=== PATIENT | female | born 1960 | race Caucasian/White ===

== ENCOUNTER 2023-02-24 10:19 | Outpatient (OUT) | payer SELFPAY ==
--- NOTE | 2023-02-24 10:27 | MM_ITS ---
Patient: MALLIKA RAMIREZ Exam Date: 02/24/2023 : 1960 Gender:F Ordering : JAMAL MCCLAIN [facility] Admission #: [id number] Family : Order #: [id number] CLICK HERE TO VIEW EXAM RADIOLOGY REPORT PROCEDURE: MM TOMOSYNTHESIS SCREENING BI COMPARISON: MG MAMM SCREEN 3D MAC CAD, 02/23/2022. MG MAMM SCREEN 3D MAC CAD, 02/15/2021. INDICATIONS: Screening Calculator Name NCI Breast Cancer Risk Assessment Tool 5 Year Breast Cancer Risk 2.60% Lifetime Breast Cancer Risk 12.10% Personal Breast Cancer No Personal Ovarian Cancer No Treatments None Family Cancers Mother with breast cancer at age ~52. LOCATION: The [facility] BREAST COMPOSITION: Scattered areas fibroglandular density. FINDINGS: DIAGNOSTIC CATEGORY 1--NEGATIVE. NO CHANGE FROM COMPARISON ASSESSMENT. Scattered benign-appearing lymph nodes are present. RIGHT BREAST: No significant suspicious finding. LEFT BREAST: No significant suspicious finding. RECOMMENDATIONS: ROUTINE MAMMOGRAM AND CLINICAL EVALUATION IN 12 MONTHS. PLEASE NOTE: A NORMAL MAMMOGRAM DOES NOT EXCLUDE THE POSSIBILITY OF BREAST CANCER. A CLINICALLY SUSPICIOUS PALPABLE LUMP SHOULD BE BIOPSIED. Dictated by: Barron Romero MD on 02/24/2023 at 12:58 Approved by: Barron Romero MD on 02/24/2023 at 12:59
== END 2023-02-24 10:20 | disposition home or self-care (01) ==
LOC: MAMMO 10:19
PROVIDERS: PCP Nurse Practitioner Family; Visit Provider Nurse Practitioner Family
DX: Z12.31 Encounter for screening mammogram for malignant neoplasm of breast (principal); Z80.3 Family history of malignant neoplasm of breast
CPT/HCPCS: 77063; 77067

== ENCOUNTER 2024-03-07 13:44 | Outpatient (OUT) | payer OTHER, SELFPAY ==
--- NOTE | 2024-03-07 14:20 | MM_ITS ---
Patient Name: MALLIKA RAMIREZ MR#: [id number] : 1960 Exam Date: 03/07/2024 Ordering Doctor: JAMAL MCCLAIN CNP RADIOLOGY REPORT PROCEDURE: MM TOMOSYNTHESIS SCREENING BI COMPARISON: MM TOMOSYNTHESIS SCREENING BI, 02/24/2023. MG MAMM SCREEN 3D MAC CAD, 02/23/2022. INDICATIONS: Screening Calculator Name NCI Breast Cancer Risk Assessment Tool 5 Year Breast Cancer Risk 2.70% Lifetime Breast Cancer Risk 11.80% Personal Breast Cancer No Personal Ovarian Cancer No Treatments None Family Cancers Mother with breast cancer at age ~52. LOCATION: [facility] BREAST COMPOSITION: There are scattered areas of fibroglandular density. FINDINGS: DIAGNOSTIC CATEGORY 1--NEGATIVE. NO CHANGE FROM COMPARISON ASSESSMENT. Scattered benign-appearing calcifications are present. RIGHT BREAST: No significant suspicious finding. LEFT BREAST: No significant suspicious finding. RECOMMENDATIONS: ROUTINE MAMMOGRAM AND CLINICAL EVALUATION IN 12 MONTHS. PLEASE NOTE: A NORMAL MAMMOGRAM DOES NOT EXCLUDE THE POSSIBILITY OF BREAST CANCER. A CLINICALLY SUSPICIOUS PALPABLE LUMP SHOULD BE BIOPSIED. Dictated by: Barron Romero MD on 03/07/2024 at 15:19 Approved by: Barron Romero MD on 03/07/2024 at 15:20
== END 2024-03-07 13:45 | disposition home or self-care (01) ==
LOC: MAMMO 13:45
PROVIDERS: PCP Nurse Practitioner Family; Visit Provider Nurse Practitioner Family
DX: Z12.31 Encounter for screening mammogram for malignant neoplasm of breast (principal); Z80.3 Family history of malignant neoplasm of breast
CPT/HCPCS: 77063; 77067

== ENCOUNTER 2025-03-12 10:51 | Outpatient (OUT) | payer OTHER, SELFPAY ==
--- NOTE | 2025-03-12 10:54 | MM_ITS ---
Patient Name: MALLIKA RAMIREZ MR#: [id number] : 1960 Exam Date: 03/12/2025 Ordering Doctor: JAMAL MCCLAIN [employer] RADIOLOGY REPORT PROCEDURE: MM TOMOSYNTHESIS SCREENING BI COMPARISON: MM TOMOSYNTHESIS SCREENING BI, 03/07/2024. MM TOMOSYNTHESIS SCREENING BI, 02/24/2023. MG MAMM SCREEN 3D MAC CAD, 02/23/2022. MG MAMM MAC SCRN W CAD DIG, 08/19/2013. INDICATIONS: Screening Calculator Name NCI Breast Cancer Risk Assessment Tool 5 Year Breast Cancer Risk 2.70% Lifetime Breast Cancer Risk 11.40% Personal Breast Cancer No Personal Ovarian Cancer No Treatments None Family Cancers Mother with breast cancer at age ~52. LOCATION: The [facility] BREAST COMPOSITION: There are scattered areas of fibroglandular density. FINDINGS: RIGHT BREAST: No significant suspicious finding. Benign-appearing lymph nodes are noted along the chest wall. LEFT BREAST: No significant suspicious finding. There is a similar focal asymmetry on the left. DIAGNOSTIC CATEGORY 2--BENIGN FINDING: RECOMMENDATIONS: ROUTINE MAMMOGRAM AND CLINICAL EVALUATION IN 12 MONTHS. Dictated by: Randy Ramirez MD on 03/12/2025 at 15:55 Approved by: Randy Ramirez MD on 03/12/2025 at 15:58
--- OUTSIDE RECORDS SUMMARY | 2025-03-12 11:06 | XMS_ITS | CCD ---
Author Organization [facility] Team Providers Care Flight Engineer Manager Name Role Phone JAMAL MCCLAIN Consulting Unavailable JAMAL MCCLAIN Primary Care Unavailable JAMAL MCCLAIN Admitting Unavailable JAMAL MCCLAIN Attending Unavailable JAMAL MCCLAIN Primary Care Unavailable JAMAL MCCLAIN Admitting Unavailable DR ERIN SIMS V Consulting Unavailable JAMAL MCCLAIN Attending Unavailable JAMAL MCCLAIN Consulting Unavailable Problems Problem ClassificationProblemDateDocumented DateEpisodic/ChronicOther screening for suspected conditions (not mental disorders or infectious disease) (4 sources)Encounter for screening mammogram for malignant neoplasm of breast; Translations: [ENC SCR MAMMO MALIG NEOPLASM BREAST]Onset: 83-15-5719Hqelojly Residual codes; unclassified (1 source)Family history of malignant neoplasm of breast; Translations: [FAMILY HX MALIG NEOPLASM OF BREAST]Onset: 38-16-2266Sbemzeaj Results Test NameValueInterpretationReference RangeFacilityINSULINon 11-05-1443Anegwqi 18.3 uIU/mLNormal2.6-24.9The [facility] HospitalComment on above:Performed By: #### INSULIN #### [facility] [address] [place] [address] Dr. Arlen Garcia AUTO DIFFon 92-73-7757KSDG #0.0 103/ulNormal0.0-0.1The [facility] HospitalComment on above:Performed By: #### CBC #### [facility] [address] [place] [address] Dr. Arlen Iniguezsophils/100 WBC (Bld)0.2 %Normal0.2-2.0[facility] Comment on above:Performed By: #### CBC #### [facility] [address] [place] [address] Dr. Arlen Hall #0.2 103/ulNormal0.0-0.7The [facility] HospitalComment on above: Performed By: #### CBC #### [facility] [address] [place] [address] Dr. Arlen Madridosinophils/100 WBC (Bld)1.7 %Normal0.9-7.0[facility] Comment on above:Performed By: #### CBC #### [facility] [address] [place] [address] Dr. Arlen Madridrythrocyte distribution width (RBC) [Ratio]13.3 %Atqwjs94.0-15.0 The [facility] HospitalComment on above:Performed By: #### CBC #### [facility] [address] [place] [address] Dr. Arlen LoyolaHematocrit (Bld) [Volume fraction]39.8 %Lvqqhw96.0-48.0The [facility] HospitalComment on above:Performed By: #### CBC #### [facility] [address] [place] [address] Dr. Arlen LoyolaHemoglobin (Bld) [Mass/Vol]13.3 g/rIEtikhc30.0-16.0The [facility] HospitalComment on above:Performed By: #### CBC #### [facility] [address] [place] [address] Dr. Arlen Peguero #0.03 10e3/ulNormal0.00-0.03The [facility] HospitalComment on above:Performed By: #### CBC #### [facility] [address] [place] [address] Dr. Arlen Peguero %0.3 %Normal0.0-0.5The [facility] HospitalComment on above: Performed By: #### CBC #### [facility] [address] [place] [address] Dr. Arlen Reeves #2.1 103/ulNormal1.2-3.8The [facility] HospitalComment on above:Performed By: #### CBC #### [facility] [address] [place] [address] Dr. Arlen Amayamphocytes/100 WBC (Bld)24.5 %Lvnvhs42.5-60.0The [facility] HospitalComment on above:Performed By: #### CBC #### [facility] [address] [place] [address] Dr. Arlen Fabian DIFF REQNONormalThe [facility] HospitalComment on above: Performed By: #### CBC #### [facility] [address] [place] [address] Dr. Arlen Palmer (RBC) [Entitic mass]29.8 orPowgcs92.7-34.0The [facility] HospitalComment on above:Performed By: #### CBC #### [facility] [address] [place] [address] Dr. Arlen Palmer (RBC) [Mass/Vol]33.4 g/yHTljoyd46.9-35.2The [facility] HospitalComment on above:Performed By: #### CBC #### [facility] [address] [place] [address] Dr. Arlen Palmer (RBC) [Entitic vol]89.0 sBBtojhl47.0-99.0The [facility] HospitalComment on above:Performed By: #### CBC #### [facility] [address] [place] [address] Dr. Arlen Cast #0.5 103/ulNormal0.3-0.8The [facility] HospitalComment on above:Performed By: #### CBC #### [facility] [address] [place] [address] Dr. Arlen Johnocytes/100 WBC (Bld)6.1 %Normal1.7-12.0[facility] Comment on above:Performed By: #### CBC #### [facility] [address] [place] [address] Dr. Arlen Galeano #5.8 103/ulNormal1.4-6.5The [facility] HospitalComment on above:Performed By: #### CBC #### [facility] [address] [address] [address] Arlen Uriasutrophils/100 WBC (Bld)67.2 %Dxczou05.0-75.0The [facility] Townshipment on above:Performed By: #### CBC #### [facility] [address] [address] [address] Arlen Smythlet mean volume (Bld) [Entitic vol]10.9 fLNormal9.5-13.5The [facility] HospitalComment on above:Performed By: #### CBC #### [facility] [address] [place] [address] Dr. Arlen YipT347 103/shUvbled617-779Byn [facility] Townshipment on above: Performed By: #### CBC #### [facility] [address] [place] [address] Dr. Arlen LoyolaRBC4.47 106/ulNormal4.20-5.40The [facility] Townshipment on above:Performed By: #### CBC #### [facility] [address] [place] [address] Dr. Arlen LoyolaWBC8.7 103/ulNormal4.0-11.0The [facility] HospitalComment on above: Performed By: #### CBC #### [facility] [address] [place] [address] Dr. Arlen Madrid THYROXINE INDEX T7on 16-39-5693UEE4.79Doigdk1.30-4.50The [facility] on above:Performed By: #### LIPID, TSH, CMP, T7 #### [facility] [address] [place] [address] Dr. Arlen LoyolaT3U36.0 %Mwcxww06.0-39.0The [facility] Townshipment on above: Performed By: #### LIPID, TSH, CMP, T7 #### [facility] [address] [place] [address] Dr. Arlen LoyolaT4 [Mass/Vol]8.00 ug/dLNormal4.80-13.90[facility] Comment on above:Performed By: #### LIPID, TSH, CMP, T7 #### [facility] [address] [place] [address] Dr. Arlen LoyolaGLYCOHEMOGLOBIN A1Con 69-07-4317SII RECOMMENDATIONSEE BELOWNormWright-Patterson Medical CenterComment on above:Result Comment: ADA RECOMMENDED LIMIT 4.0 - 6.0 ADA THERAPEUTIC TARGET < 7.0 ACTION SUGGESTED > 7.0Performed By: #### A1C #### [facility] [address] [place] [address] Dr. Arlen LoyolaGlucose [Mass/Vol]117 mg/dLNoKettering Health MiamisburgComment on above:Performed By: #### A1C #### [facility] [address] [place] [address] Dr. Arlen LoyolaHbA1c (Bld) [Mass fraction]5.7 %Normal4.5-6.2The [facility] HospitalComment on above:Performed By: #### A1C #### [facility] [address] [place] [address] Dr. Arlen Boyer 83-31-1736Vsdh [Mass/Vol]78.0 ug/wQFcstbf87.0-170.0The [facility] HospitalComment on above:Performed By: #### IRON #### [facility] [address] [place] [address] Dr. Arlen ElliottID PROFILEon 38-88-2714YFFU-HDL RATIO NORMSEE BELOWCity HospitalComment on above:Result Comment: 3.3 - 4.4 LOW RISK 4.4 - 7.1 AVERAGE RISK 7.1 - 11.0 MODERATE RISK >11.0 HIGH RISKPerformed By: #### LIPID, TSH, CMP, T7 #### [facility] [address] [place] [address] Dr. Arlen LoyolaCholesterol [Mass/Vol]181 mg/dLNormal<=200The [facility] Comment on above:Performed By: #### LIPID, TSH, CMP, T7 #### [facility] [address] [place] [address] Dr. Arlen LoyolaCholesterol in HDL [Mass/Vol]52 mg/wPSxvwjr08-03Sst [facility] Townshipment on above:Performed By: #### LIPID, TSH, CMP, T7 #### [facility] [address] [address] [address] Arlen LoyolaCholesterol in LDL [Mass/Vol]80.8 mg/dLCity HospitalComment on above:Performed By: #### LIPID, TSH, CMP, T7 #### [facility] [address] [address] [address] Arlen Mendez.total/Cholesterol in HDL [Mass ratio]3.5 {ratio} NormalThe [facility] HospitalComeaton rapids medical center on above:Performed By: #### LIPID, TSH, CMP, T7 #### [facility] [address] [place] [address] Dr. Arlen Chambers NORMAL> or = 60 mg/dl - LOW CARDIOVASCULAR RISK <40 mg/dl - HIGH CARDIOVASCULAR RISKNoKettering Health MiamisburgComeaton rapids medical center on above:Performed By: #### LIPID, TSH, CMP, T7 #### [facility] [address] [place] [address] Dr. Arlen Leonard CALC NORMALSEE BELOWCity HospitalComeaton rapids medical center on above:Result Comment: <100 mg/dl OPTIMAL 100 - 129 mg/dl NEAR OR ABOVE OPTIMAL 130 - 159 mg/dl BORDERLINE HIGH 160 - 189 mg/dl HIGH >190 mg/dl VERY HIGH Performed By: #### LIPID, TSH, CMP, T7 #### [facility] [address] [address] [address] Arlen LoyolaTriglyceride [Mass/Vol]241 mg/dLCritically high<=150The [facility] HospitalComeaton rapids medical center on above:Performed By: #### LIPID, TSH, CMP, T7 #### [facility] [address] [place] [address] Dr. Arlen BooLDL CALC48.2 mg/dLNoKettering Health MiamisburgComment on above: Performed By: #### LIPID, TSH, CMP, T7 #### [facility] [address] [place] [address] Dr. Arlen Bartholomew 14(COMP METB)on 59-72-0045Wfvcqls [Mass/Vol]3.6 g/dLNormal 3.4-5.0The [facility] HospitalComment on above:Performed By: #### LIPID, TSH, CMP, T7 #### [facility] [address] [address] [address] Arlen LoyolaAlbumin/Globulin [Mass ratio]0.9 {ratio}NormalThe [facility] HospitalComment on above:Performed By: #### LIPID, TSH, CMP, T7 #### [facility] [address] [address] [address] Arlen Barney [Catalytic activity/Vol]70 U/YEortvg45-002Iak [facility] HospitalComment on above:Performed By: #### LIPID, TSH, CMP, T7 #### [facility] [address] [place] [address] Dr. Arlen Regalado [Catalytic activity/Vol]19 U/BQahibu08-23Zqz [facility] HospitalComment on above:Performed By: #### LIPID, TSH, CMP, T7 #### [facility] [address] [place] [address] Dr. Arlen Calloway gap [Moles/Vol]13.7 mmol/LNormalThe [facility] Comment on above:Performed By: #### LIPID, TSH, CMP, T7 #### [facility] [address] [place] [address] Dr. Arlen Echols [Catalytic activity/Vol]22 U/YSydynx58-38Jmb [facility] HospitalComment on above:Performed By: #### LIPID, TSH, CMP, T7 #### [facility] [address] [address] [address] Arlen LoyolaBilirubin [Mass/Vol]0.3 mg/dLNormal0.2-1.0The [facility] Comment on above:Performed By: #### LIPID, TSH, CMP, T7 #### [facility] [address] [place] [address] Dr. Arlen LoyolaCalcium [Mass/Vol]9.3 mg/dLNormal8.5-10.1The [facility] Comment on above:Performed By: #### LIPID, TSH, CMP, T7 #### [facility] [address] [address] [address] rAlen LoyolaChloride [Moles/Vol]104 mmol/QFvqfqj55-123SiaZanesville City Hospital Comment on above:Performed By: #### LIPID, TSH, CMP, T7 #### [facility] [address] [address] [address] Arlen LoyolaCO2 [Moles/Vol]27.6 mmol/YBpvvdi61.0-32.0The [facility] Comment on above:Performed By: #### LIPID, TSH, CMP, T7 #### [facility] [address] [place] [address] Dr. Arlen LoyolaCreatinine [Mass/Vol]0.73 mg/dLNormal0.55-1.02[facility] HospitalComment on above:Performed By: #### LIPID, TSH, CMP, T7 #### [facility] [address] [place] [address] Dr. Arlen MadridGFR-AF EMIRATI>60Normal>=60The [facility] HospitalComment on above:Performed By: #### LIPID, TSH, CMP, T7 #### [facility] [address] [place] [address] Dr. Arlen Su-NON AF EMIRATI>60Normal>=60[facility] HospitalComment on above:Performed By: #### LIPID, TSH, CMP, T7 #### [facility] [address] [place] [address] Dr. Arlen LoyolaGlobulin (S) [Mass/Vol]4.2 g/dLNormalThe [facility] HospitalComment on above:Performed By: #### LIPID, TSH, CMP, T7 #### [facility] [address] [place] [address] Dr. Arlen LoyolaGlucose [Mass/Vol]104 mg/jIWidnin88-810RymZanesville City Hospital Comment on above:Performed By: #### LIPID, TSH, CMP, T7 #### [facility] [address] [place] [address] Dr. Arlen LoyolaPotassium [Moles/Vol]4.3 mmol/LNormal3.5-5.1The [facility] Comment on above:Performed By: #### LIPID, TSH, CMP, T7 #### [facility] [address] [place] [address] Dr. Arlen LoyolaProtein [Mass/Vol]7.8 g/dLNormal6.4-8.2The [facility] Comment on above:Performed By: #### LIPID, TSH, CMP, T7 #### [facility] [address] [place] [address] Dr. Arlen LoyolaSodium [Moles/Vol]141 mmol/KFhesbq731-575Zyr [facility] Comment on above:Performed By: #### LIPID, TSH, CMP, T7 #### [facility] [address] [place] [address] Dr. Arlen LoyolaUrea nitrogen [Mass/Vol]11.0 mg/dLNormal7.0-18.0The [facility] HospitalComment on above:Performed By: #### LIPID, TSH, CMP, T7 #### [facility] [address] [place] [address] Dr. Arlen Nguyen nitrogen/Creatinine [Mass ratio]15.1 mg/mgNormalThe [facility] HospitalComment on above:Performed By: #### LIPID, TSH, CMP, T7 #### [facility] [address] [place] [address] Dr. Arlen Parker 92-20-3273KDP3.644 uIU/mLNormal0.358-3.740[facility] City HospitalComment on above:Performed By: #### LIPID, TSH, CMP, T7 #### [facility] [address] [place] [address] Dr. Arlen LoyolaMG MAMM SCREEN 3D MAC CADon 53-99-6980GY MAMM SCREEN 3D MAC CAD Patient: MALLIKA RAMIREZ Exam Date: 02/23/2022 : 1960 Gender:F Ordering : JAMAL MCCLAIN [facility] Admission #: [id number] Family : Order #: [id number] CLICK HERE TO VIEW EXAM RADIOLOGY REPORT PROCEDURE: MAMMOGRAM SCREENING 3D BILATERAL CAD COMPARISON: MG MAMM SCREEN MAC W CAD, 02/11/2020. MG MAMM SCREEN 3D MAC CAD, 02/15/2021. INDICATIONS: Screening mammography Calculator Name NCI Breast Cancer Risk Assessment Tool 5 Year Breast Cancer Risk 2.50% Lifetime Breast Cancer Risk 12.40% Personal Breast Cancer No Personal Ovarian Cancer No Treatments None Family Cancers Mother with breast cancer at age 52. LOCATION: [facility] BREAST COMPOSITION: Scattered areas fibroglandular density. FINDINGS: DIAGNOSTIC CATEGORY 1--NEGATIVE. NO CHANGE FROM COMPARISON ASSESSMENT. Scattered benign-appearing calcifications are present. Scattered benign-appearing lymph nodes are present. RIGHT BREAST: No significant suspicious finding. LEFT BREAST: No significant suspicious finding. RECOMMENDATIONS: ROUTINE MAMMOGRAM AND CLINICAL EVALUATION IN 12 MONTHS. PLEASE NOTE: A NORMAL MAMMOGRAM DOES NOT EXCLUDE THE POSSIBILITY OF BREAST CANCER. A CLINICALLY SUSPICIOUS PALPABLE LUMP SHOULD BE BIOPSIED. Dictated by: Erin Sims MD on 02/23/2022 at 11:09 Approved by: Erin Sims MD on 02/23/2022 at 11:15NProv[facility] En[facility] Encounter DateEncounter TypeCare ProviderFacilityStart: 62-81-6591Psohzmwua for general adult medical examination without abnormal findingsAdena Pike Medical Centertart: 05-04-2022 End: 70-72-9255csawyodfxzEDGLCJ CRAMERFacility:U3Tpisr: 05-04-2022 End: 52-60-5455Lfxylocyq for general adult medical examination without abnormal findingsRaritan Bay Medical Center, Old Bridgecility:I1Hoaed: 02-23-2022 End: 93-88-7565djlhoansahGHDOLL CRAMERFacility:H1 Payers DatePayer CategoryPayerPolicy [id number] Summary Purpose Family History No Family History Records Found Advance Directives No Advanced Directives Records Found Additional Source Comments INFORMATION SOURCE (unrecogn ized section and content) DATE CREATED AUTHOR 05/13/2022 [facility] FOR RECORDS PERTAINING TO PATIENTS WHO ARE OR HAVE BEEN ENROLLED IN A CHEMICAL DEPENDENCY/SUBSTANCEABUSE PROGRAM, SOME INFORMATION MAY BE OMITTED. This clinical summary was aggregated from multiple sources. Caution should be exercised in using it in the provision of clinical care. This summary normalizes information from multiple sources, and as a consequence, information in this document may materially change the coding, format and clinical context of patient data. In addition, data may be omitted in some cases. CLINICAL DECISIONS SHOULD BE BASED ON THE PRIMARY CLINICAL RECORDS. [facility] [employer] [facility]. provides no warranty or guarantee of the accuracy or completeness of information in this document.
== END 2025-03-12 10:52 | disposition home or self-care (01) ==
LOC: MAMMO 10:51
PROVIDERS: PCP Nurse Practitioner Family; Visit Provider Nurse Practitioner Family
DX: Z12.31 Encounter for screening mammogram for malignant neoplasm of breast (principal); Z80.3 Family history of malignant neoplasm of breast
CPT/HCPCS: 77063; 77067